=== PATIENT | female | born 1970 | race Caucasian/White ===

== ENCOUNTER → 2017-09-05 | Outpatient (CLI) | payer BC, OTHER | LOC: MC.RAD 08:08 | DX: Z12.31 Encounter for screening mammogram for malignant neoplasm of breast (principal); R92.8 Other abnormal and inconclusive findings on diagnostic imaging of breast ==

== ENCOUNTER → 2017-09-12 | Outpatient (CLI) | payer BC, OTHER | LOC: MC.RAD 13:00 | DX: N63.11 Unspecified lump in the right breast, upper outer quadrant (principal) ==